=== PATIENT | male | born 1985 | race American Indian/Alaskan Native ===

== ENCOUNTER 2021-09-01 14:42 | Emergency (ER) | payer SELFPAY ==
--- NOTE | 2021-09-01 16:39 | Emergency Department Report ---
ED General Adult HPI - General Chief complaint: Extremity Injury, Upper Stated complaint: LT LOWER ARM PAIN Time Seen by Provider: 09/01/21 15:51 Source: patient Mode of arrival: Ambulatory Limitations: No Limitations - History of Present Illness Initial comments: 36-year-old -[place] male patient presents with complaints of left elbow pain intermittently x3 weeks. Patient states the pain occurs only with range of motion and after a long day of work. 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 He denies any direct injuries to his elbow, fever/chills/sweats, IV drug use, swelling to the area, recent long travel/surgeries, leg pain/swelling, or fever/chills/sweats. No history of cancer per patient. No pain at current. He states Advil is no longer helping with the pain. NKDA per patient. He denies any past medical hx - Related Data Previous Rx's Medication Instructions Recorded Last Taken Type Naproxen [Naprosyn] 500 mg PO BID PRN #20 tab 09/01/21 Unknown Rx methocarbamoL [Methocarbamol] 750 mg PO TID PRN #15 tab 09/01/21 Unknown Rx predniSONE [Deltasone] 20 mg PO BID 2 Days #4 tab 09/01/21 Unknown Rx Allergies Allergy/AdvReac Type Severity Reaction Status Date / Time No Known Allergies Allergy Verified 09/01/21 15:50 ED Review of Systems ROS: Stated complaint: LT LOWER ARM PAIN Other details as noted in HPI Constitutional: denies: chills, diaphoresis, fever, malaise, weakness Musculoskeletal: arthralgia. denies: back pain, joint swelling Skin: denies: rash, change in color Neurological: denies: numbness, paresthesias Hematological/Lymphatic: denies: easy bleeding ED Past Medical Hx - Past Medical History Previous Medical History?: Yes - Medications Home Medications: Home Medications Medication Instructions Recorded Confirmed Last Taken Type Naproxen [Naprosyn] 500 mg PO BID PRN #20 tab 09/01/21 Unknown Rx methocarbamoL [Methocarbamol] 750 mg PO TID PRN #15 tab 09/01/21 Unknown Rx predniSONE [Deltasone] 20 mg PO BID 2 Days #4 tab 09/01/21 Unknown Rx ED Physical Exam - General Limitations: No Limitations General appearance: alert, in no apparent distress - Head Head exam: Present: atraumatic, normocephalic - Eye Eye exam: Present: normal appearance - Respiratory Respiratory exam: Absent: respiratory distress - Cardiovascular Cardiovascular Exam: Present: regular rate, normal rhythm - Expanded Upper Extremity Exam Left Shoulder Exam: Present: normal inspection Upper Arm exam: Present: normal inspection Elbow exam: Present: normal inspection Forearm Wrist exam: Present: normal inspection Hand Wrist exam: Present: normal inspection Vascular: Absent: pulse deficit radial art, pulse deficit ulnar art - Neurological Exam Neurological exam: Present: alert, oriented X3 - Psychiatric Psychiatric exam: Present: normal affect, normal mood - Skin Skin exam: Present: warm, dry, intact, normal color. Absent: rash ED Course Vital Signs 09/01/21 15:49 Temperature 98.0 F Pulse Rate 89 Blood Pressure 141/86 O2 Sat by Pulse 99 Oximetry ED Medical Decision Making - Medical Decision Making 36-year-old -[place] male patient presents with complaints of left elbow pain intermittently x3 weeks. Patient states the pain occurs only with range of motion and after a long day of work. 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 He denies any direct injuries to his elbow, fever/chills/sweats, IV drug use, swelling to the area, recent long travel/surgeries, leg pain/swelling, or fever/chills/sweats. No history of cancer per patient. No pain at current. He states Advil is no longer helping with the pain. NKDA per patient. He denies any past medical hx Exam is normal of the elbow and left forearm, hand, and wrist. Given history, suspect patient's pain is due to a tendinitis. Recommend rice method of treatment along with NSAIDs. Patient to follow-up with primary care in 3 to 5 days. He is otherwise well-appearing, his vitals are within normal limits, he is stable for discharge home. Strict return precautions were discussed in de tail with patient who verbalizes understanding peer Critical care attestation.: If time is entered above; I have spent that time in minutes in the direct care of this critically ill patient, excluding procedure time. ED Disposition Clinical Impression: Left elbow pain Disposition: HOME / SELF CARE / HOMELESS Is pt being admited?: No Condition: Stable Instructions: Pitcher's Elbow Prescriptions: predniSONE [Deltasone] 20 mg PO BID 2 Days #4 tab methocarbamoL [Methocarbamol] 750 mg PO TID PRN #15 tab PRN Reason: muscle tightness/spasm Naproxen [Naprosyn] 500 mg PO BID PRN #20 tab PRN Reason: pain Forms: Work/School Release Form(ED)
[2021-09-01 16:56] VITALS: BP 115/83
== END 2021-09-01 17:02 | disposition home or self-care (01) ==
LOC: ED 14:42
DX: M25.522 Pain in left elbow (principal); Z79.899 Other long term (current) drug therapy
CPT/HCPCS: 99282